=== PATIENT | male | born 1975 | race Caucasian/White ===

== ENCOUNTER 2018-05-22 03:18 | Inpatient (IN) ==
--- NOTE | 2018-05-22 04:01 | ED ---
HPI General Chief complaint: Psychiatric Symptoms Stated complaint: BA/OBPD Time Seen by Provider: 05/22/18 04:00 Source: patient Limitations: no limitations History of Present Illness HPI narrative: 43-year-old male with history of chronic pain, depression, presents emergency department under Leos act for psychiatric evaluation. Patient states he has had pain since he was 17 and he "just wants to ." He states he does not want to kill himself. He has no plan for suicide but he just wants to . He is tired of living in pain. He denies any acute medical needs at this time. He has no other symptoms to report Related Data Allergies Allergy/AdvReac Type Severity Reaction Status Date / Time phenytoin Allergy Severe Unverified 04/10/17 17:15 Review of Systems ROS: all other systems reviewed are negative PMFSH History History Provided By: Patient Social History Social History Recent Travel in [facility] within the Last 8 Weeks: No Recent Out of Country Travel within the Last 8 Weeks: No Exam Narrative Exam Narrative: GENERAL: Well-nourished male patient, in no acute distress SKIN: Focused skin assessment warm/dry. HEAD: Scar to the left parietal scalp. Normocephalic. EYES: Pupils equal and round. No scleral icterus. No injection or drainage. ENT: No nasal bleeding or discharge. Mucous membranes pink and moist. NECK: Trachea midline. No JVD. CARDIOVASCULAR: Regular rate and rhythm. No murmur appreciated. RESPIRATORY: No accessory muscle use. Clear to auscultation. Breath sounds equal bilaterally. GASTROINTESTINAL: Abdomen soft, non-tender, nondistended. Hepatic and splenic margins not palpable. MUSCULOSKELETAL: No obvious deformities. No clubbing. No cyanosis. No edema. NEUROLOGICAL: Awake and alert. No obvious cranial nerve deficits. Motor grossly within normal limits. Normal speech. Course Initial Documented Vital Signs Temperature 98.6 F 05/22/18 03:32 Pulse Rate 138 H 05/22/18 03:32 Respiratory Rate 12 05/22/18 03:32 Blood Pressure 129/89 05/22/18 03:32 Pulse Oximetry 98 05/22/18 03:32 Last Documented Vital Signs Temperature 98.6 F 05/22/18 03:32 Pulse Rate 107 H 05/22/18 06:16 Respiratory Rate 18 05/22/18 06:16 Blood Pressure 131/86 05/22/18 06:16 Pulse Oximetry 98 05/22/18 06:16 Medical Decision Making NINO Attestation NINO supervised visit: Yes MDM Narrative Medical decision making narrative: 43-year-old male presents emergency department under Leos act for psychiatric evaluation. Patient appears without distress. He reports chronic pain and wanting to with no active plan of suicide. Lab work is reviewed and without acute concern. Patient is medically cleared to undergo psychiatric screening for further evaluation and disposition. Medical Screen Exam Complete: Yes Emergency Medical Condition: Yes Differential Diagnosis Differential Diagnosis: Mood disorder versus personality disorder versus adjustment Lab Data Lab results reviewed: Yes I reviewed the patient's lab results. Result diagrams: 05/22/18 03:35 05/22/18 03:35 Lab Results 05/22/18 05/22/18 05/22/18 Range/Units 03:35 03:35 04:30 WBC 11.7 H (4.0-11.0) th/mm3 RBC 5.60 (4.50-5.90) mil/mm3 Hgb 14.0 (13.0-17.0) gm/dL Hct 44.3 (39.0-51.0) % MCV 79.1 L (80.0-100.0) fL MCH 24.9 L (27.0-34.0) pg MCHC 31.5 L (32.0-36.0) % RDW 17.1 (11.6-17.2) % Plt Count 386 (150-450) th/mm3 MPV 8.7 (7.0-11.0) fL Neut % (Auto) 54.8 (16.0-70.0) % Lymph % (Auto) 33.5 (9.0-44.0) % Ray % (Auto) 8.5 H (0.0-8.0) % Eos % (Auto) 2.3 (0.0-4.0) % Baso % (Auto) 0.9 (0.0-2.0) % Neut # (Auto) 6.4 (1.8-7.7) th/mm3 Lymph # (Auto) 3.9 (1.0-4.8) th/mm3 Ray # (Auto) 1.0 H (0.0-0.9) th/mm3 Eos # (Auto) 0.3 (0.0-0.4) th/mm3 Baso # (Auto) 0.1 (0.0-0.2) th/mm3 WBC Differential . Differential Comment Auto diff final Sodium 137 (136-145) meq/L Potassium 3.9 (3.5-5.1) meq/L Chloride 103 (98-107) meq/L Carbon Dioxide 18.9 L (21.0-32.0) meq/L Anion Gap 15 (5-15) meq/L BUN 14 (7-18) mg/dL Creatinine 1.24 (0.60-1.30) mg/dL Estimated GFR 64 L (>89) mL/min Random Glucose 167 H (74-106) mg/dL Calcium 9.4 (8.5-10.1) mg/dL TSH 3.220 (0.358-3.740) uIU/mL Urine Opiates Screen Neg (Neg) Ur Barbiturates Screen Neg (Neg) Ur Amphetamines Screen Neg (Neg) U Benzodiazepines Scrn Neg (Neg) Urine Cocaine Screen Neg (Neg) U Cannabinoids Screen Pos H (Neg) Serum Alcohol Less than 3 (0-5) mg/dL Discharge Plan Discharge Disposition Patient Disposition: 30 Still Patient Discharge Condition Condition: Stable Discharge Details Diagnosis: Adjustment reaction Physicians Team ED Provider: Estefani Pearson ED Midlevel Provider: Charito Cuellar Primary Care Provider: Jayjay Snyder Discharge Interventions Interventions: Vital Signs Last Done: 05/22/18 06:16 Status ED Status: With Doctor
[2018-05-22 04:25] LABS: Baso # (Auto) 0.1 th/mm3 (0.0-0.2); Baso % (Auto) 0.9 % (0.0-2.0); Eos # (Auto) 0.3 th/mm3 (0.0-0.4); Eos % (Auto) 2.3 % (0.0-4.0); Hematocrit 44.3 % (39.0-51.0); Lymph # (Auto) 3.9 th/mm3 (1.0-4.8); Lymph % (Auto) 33.5 % (9.0-44.0); Mean Corpuscular HGB Conc 31.5 % (32.0-36.0); Mean Corpuscular Hemoglobin 24.9 pg (27.0-34.0); Mean Corpuscular Volume 79.1 fL (80.0-100.0); Mean Platelet Volume 8.7 fL (7.0-11.0); Mono % (Auto) 8.5 % (0.0-8.0); Neut # (Auto) 6.4 th/mm3 (1.8-7.7); Neut % (Auto) 54.8 % (16.0-70.0); Platelet Count 386 th/mm3 (150-450); Red Cell Distribution Width 17.1 % (11.6-17.2); White Blood Count 11.7 th/mm3 (4.0-11.0)
[2018-05-22 04:46] LABS: Anion Gap 15 meq/L (5-15); Blood Urea Nitrogen 14 mg/dL (7-18); Calcium 9.4 mg/dL (8.5-10.1); Carbon Dioxide 18.9 meq/L (21.0-32.0); Chloride 103 meq/L (98-107); Glomerular Filtration Rate 64 mL/min (>89); Glucose,Random 167 mg/dL (74-106); Potassium 3.9 meq/L (3.5-5.1); Sodium 137 meq/L (136-145)
[2018-05-22 04:50] LABS: Amphetamine Screen,Urine Neg (Neg); Barbiturate Screen,Urine Neg (Neg); Cannabinoid Screen,Urine Pos (Neg); Cocaine Screen,Urine Neg (Neg)
[2018-05-22 04:51] LABS: Opiate Screen,Urine Neg (Neg)
[2018-05-22 17:54] VITALS: O2SAT 99
[2018-05-23] MEDS ORDERED: Aluminum/Magnesium/Simethacone Susp 30 ML UDC PO PRN ×2 (00:16→15:28)
[2018-05-23] MEDS ORDERED: Acetaminophen 325 MG Tablet PO PRN (00:16)
[2018-05-23] MEDS ORDERED: Metoprolol Tartrate 50 MG Tablet PO SCH (09:00)
[2018-05-23] MEDS ORDERED: Pregabalin 75 MG Capsule PO SCH (09:00)
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
[2018-05-23 17:47] VITALS: BP 132/72; PULSE 104; RESP 17; TEMP 97.7
[2018-05-23] MEDS ORDERED: LYRICA 75 MG PO SCH (21:00)
[2018-05-23] MEDS ORDERED: LOSARTAN 100 MG PO SCH (21:00)
[2018-05-23] MEDS ORDERED: ETODOLAC 400 MG PO SCH (21:00)
[2018-05-24] MEDS ORDERED: ACTOS 45 MG PO SCH (09:00)
[2018-05-24] MEDS ORDERED: ATORVASTATIN 80 MG PO SCH (09:00)
[2018-05-24] MEDS ORDERED: LOPRESSOR 50 MG PO SCH (09:00)
[2018-05-24] MEDS ORDERED: PRILOSEC 40 MG PO SCH (09:00)
== END 2018-05-23 18:05 | disposition home or self-care (01) ==
LOC: NEPJ 03:18 → NEDA 20:59 → H270 21:10
PROVIDERS: ADMIT Psychiatry & Neurology Psychiatry; ATTEND Psychiatry & Neurology Psychiatry